=== PATIENT | female | born 1995 | race American Indian/Alaskan Native ===

== ENCOUNTER 2020-09-04 03:01 | Emergency (ER) | payer OTHER ==
[2020-09-04 04:29] VITALS: BP 124/68
[2020-09-04 05:47] LABS: Basophils # (Auto) 0.1 K/mm3 (0.0-0.1); Basophils % (Auto) 0.7 % (0.0-1.8); Eosinophils # (Auto) 0.3 K/mm3 (0.0-0.4); Eosinophils % (Auto) 3.8 % (0.0-4.3); Hematocrit 33.6 % (30.3-42.9); Lymphocytes % (Auto) 36.7 % (13.4-35.0); Mean Corpuscular HGB Conc 36 % (30-34); Mean Corpuscular Volume 86 fl (79-97); Monocytes # (Auto) 0.6 K/mm3 (0.0-0.8); Monocytes % (Auto) 7.4 % (0.0-7.3); Platelet Count 245 K/mm3 (140-440)
[2020-09-04 06:05] LABS: Alanine Aminotransferase 10 units/L (7-56); Albumin 4.2 g/dL (3.9-5); Blood Urea Nitrogen 9 mg/dL (7-17); Calcium 9.2 mg/dL (8.4-10.2); Hemolysis Index 6
[2020-09-04 06:08] LABS: BUN/Creatinine Ratio 18; Bilirubin,Direct < 0.2 mg/dL (0-0.2)
--- NOTE | 2020-09-04 07:28 | Ultrasound Report ---
ULTRASOUND PELVIS, COMPLETE INDICATION: Pelvic pain COMPARISON: No relevant prior imaging study available. TECHNIQUE: Transabdominal imaging was performed. FINDINGS: Uterus: IUD is within the lower uterine segment/cervix. Endometrial echo complex measures 3-4. Right ovary: No significant abnormality. Flow is seen to the right ovary. Left ovary: No significant abnormality. Flow is seen to the left ovary. Additional findings: There is no free fluid in the pelvis. IMPRESSION: IUD is low lying in the lower uterine segment/cervix. Otherwise unremarkable pelvic ultrasound. Signer Name: Maciej Cavazos MD Signed: 09/04/2020 7:24 AM Workstation Name: [id number]
--- NOTE | 2020-09-04 07:38 | Emergency Department Report ---
<YAMILKA CALERO - Last Filed: 09/04/20 09:15> ED Abdominal Pain HPI - General Chief Complaint: Abdominal Pain Stated Complaint: STOMACH AND BUTT CRAMPING BLEEDING Time Seen by Provider: 09/04/20 05:11 - Related Data Previous Rx's Medication Instructions Recorded Last Taken Type Ketorolac [Toradol] 10 mg PO Q6H PRN #10 tablet 09/04/20 Unknown Rx Nitrofurantoin [place]/M-Cryst 100 mg PO BID 5 Days #10 capsule 09/04/20 Unknown Rx [Macrobid CAP] Allergies Allergy/AdvReac Type Severity Reaction Status Date / Time No Known Allergies Allergy Unverified 08/28/20 09:14 ED Past Medical Hx - Medications Home Medications: Home Medications Medication Instructions Recorded Confirmed Last Taken Type Ketorolac [Toradol] 10 mg PO Q6H PRN #10 tablet 09/04/20 Unknown Rx Nitrofurantoin [place]/M-Cryst 100 mg PO BID 5 Days #10 capsule 09/04/20 Unknown Rx [Macrobid CAP] ED Medical Decision Making - Lab Data Result diagrams: 09/04/20 05:23 09/04/20 05:23 ED Disposition Clinical Impression: Pelvic pain UTI (urinary tract infection) Qualifiers: Urinary tract infection type: acute cystitis Hematuria presence: without hematuria Qualified Code(s): N30.00 - Acute cystitis without hematuria Disposition: - TO HOME OR SELFCARE Condition: Stable Instructions: Pelvic Pain, Female, Urinary Tract Infection, Adult, [id number], Abdominal Pain (ED) Prescriptions: Nitrofurantoin [place]/M-Cryst [Macrobid CAP] 100 mg PO BID 5 Days #10 capsule Ketorolac [Toradol] 10 mg PO Q6H PRN #10 tablet PRN Reason: Pain Referrals: [facility] [Provider Group] - 3-5 Days [facility], [Primary Care Provider] - 3-5 Days <DEBORAH ISBELL - Last Filed: 09/06/20 08:02> ED Abdominal Pain HPI - General Source: family Mode of arrival: Ambulatory Limitations: No Limitations - History of Present Illness Initial Comments: 25-year-old with an IUD Somali female presents emerge department complaining abdominal pain to the lower region that started last night radiates to the right flank associated with no nausea vomiting or diarrhea. She reports no hematuria no hematemesis no hematochezia no vaginal bleeding. States his BMs are crampy leg pain that starts in her lower abdomen and kind of shoots back towards her buttocks for reasons unknown she reports no palliative or provocative factors with exception of some movements and positions exploring the pain. MD Complaint: abdominal pain Quality: cramping, aching Consistency: intermittent (Becoming more consistent) Associated Symptoms: denies: nausea, vomiting, diarrhea, fever, constipation, dysuria, hematemesis, melena, hematuria, anorexia ED Review of Systems ROS: Stated complaint: STOMACH AND BUTT CRAMPING BLEEDING Other details as noted in HPI Comment: All other systems reviewed and negative ED Past Medical Hx - Past Medical History Previous Medical History?: Yes Additional medical history: ovarian cyst - Surgical History Additional Surgical History: - Social History Smoking Status: Never Smoker Substance Use Type: None ED Physical Exam - General Limitations: No Limitations General appearance: alert, in no apparent distress - Head Head exam: Present: atraumatic, normocephalic - Eye Eye exam: Present: normal appearance, PERRL Pupils: Present: normal accommodation - ENT ENT exam: Present: mucous membranes moist - Neck Neck exam: Present: normal inspection - Respiratory Respiratory exam: Present: normal lung sounds bilaterally. Absent: respiratory distress - Cardiovascular Cardiovascular Exam: Present: regular rate, normal rhythm. Absent: systolic murmur, diastolic murmur, rubs, gallop - GI/Abdominal GI/Abdominal exam: Present: soft, tenderness, normal bowel sounds - Extremities Exam Extremities exam: Present: normal inspection - Back Exam Back exam: Present: normal inspection - Neurological Exam Neurological exam: Present: alert, oriented X3 - Psychiatric Psychiatric exam: Present: normal affect, normal mood - Skin Skin exam: Present: warm, dry, intact, normal color. Absent: rash ED Course Vital Signs 09/04/20 03:40 Temperature 98.3 F Pulse Rate 69 Respiratory 17 Rate Blood Pressure 124/68 O2 Sat by Pulse 98 Oximetry ED Medical Decision Making - Lab Data Result diagrams: 09/04/20 05:23 09/04/20 05:23 - Radiology Data Radiology results: report reviewed [facility] [address] [place] [address] Ultrasound Report Signed Patient: SALLY GENTILE MR#: [id number] : 1995 Acct:[id number] Age/Sex: 25 / F ADM Date: 09/04/20 Loc: ED Attending Dr: Ordering Physician: ROD RIOJAS Date of Service: 09/04/20 Procedure(s): US pelvic complete Accession Number(s): [id number] cc: ROD RIOJAS ULTRASOUND PELVIS, COMPLETE INDICATION: Pelvic pain COMPARISON: No relevant prior imaging study available. TECHNIQUE: Transabdominal imaging was performed. FINDINGS: Uterus: IUD is within the lower uterine segment/cervix. Endometrial echo complex measures 3-4. Right ovary: No significant abnormality. Flow is seen to the right ovary. Left ovary: No significant abnormality. Flow is seen to the left ovary. Additional findings: There is no free fluid in the pelvis. IMPRESSION: IUD is low lying in the lower uterine segment/cervix. Otherwise unremarkable pelvic ultrasound. Signer Name: Maciej Cavazos MD Signed: 09/04/2020 7:24 AM Workstation Name: [id number] Transcribed By: LUIZ Dictated By: Maciej Cavazos MD Electronically Authenticated By: Maciej Cavazos MD Signed Date/Time: 09/04/20723 DD/ 1 TD/TT: - Medical Decision Making 25-year-old Somali male presents emergency department with abdominal pelvic pain of unclear etiology has an IUD placed and was thinking that there was an issue in the category. An ultrasound will scan to perform evaluate the potential causes of her pain however neither the clinical examination of the ultrasound has identified an emergent cyst etiology for the abdominal pain. Specifically given the findings on physical semination, the laboratory studies and unremarkable ultrasound have a very low suspicion for pelvic inflammatory disease, ovarian torsion, appendicitis, ischemic bowel or any perforation or any other life threatening causes. She did have findings suggestive of UTI which may account for some of the discomfort and it was treated accordingly. I have discussed with the patient the level of uncertainty and undifferentiated abdominal pain and clearly explained the need to follow-up as noted in the dis charge instructions or change or emergency department immediately if the pain worsens, fever develops, persistent ankle uncontrollable vomiting, or any new symptoms or concerns to suggest that your symptoms are worsening Critical care attestation.: If time is entered above; I have spent that time in minutes in the direct care of this critically ill patient, excluding procedure time. ED Disposition Is pt being admited?: No Does the pt Need Aspirin: No
[2020-09-04 09:07] LABS: Bilirubin,Urine NEG (Negative); Blood,Urine NEG (Negative); Color,Urine Yellow (Yellow); Mucus,Urine FEW /HPF; Protein,Urine <15 mg/dL mg/dL (Negative); Urobilinogen,Urine < 2.0 mg/dL (<2.0)
== END 2020-09-04 09:44 | disposition home or self-care (01) ==
LOC: ED 03:01
DX: N39.0 Urinary tract infection, site not specified (principal)
CPT/HCPCS: 36415; 76856; 80048; 80076; 81001; 83690; 84703; 85025; 87086

== ENCOUNTER 2020-09-24 10:27 | Day surgery (SDC) | payer BC, OTHER ==
--- NOTE | 2020-09-24 08:54 | History and Physical Report ---
History of Present Illness Date of examination: 09/24/20 Chief complaint: Retained IUD History of present illness: Pt is a 25 year old -[place] female who presents for surgical removal of IUD after failed in-office attempt Past History Past Medical History: no pertinent history Past Surgical History: no surgical history [employer] History: chlamydia (remote history ), gonorrhea (remote history ), herpes, trichomonas (remote history ) Family/Genetic History: none Social history: no significant social history - Obstetrical History : 2 Para: 1 Hx # Term Pregnancies: 1 Number of Pregnancies: 0 Spontaneous Abortions: 0 Induced : 1 Number of Living Children: 1 Medications and Allergies Allergies Allergy/AdvReac Type Severity Reaction Status Date / Time No Known Allergies Allergy Unverified 08/28/20 09:14 Home Medications Medication Instructions Recorded Confirmed Last Taken Type Ketorolac [Toradol] 10 mg PO Q6H PRN #10 tablet 09/04/20 Unknown Rx Nitrofurantoin [place]/M-Cryst 100 mg PO BID 5 Days #10 capsule 09/04/20 Unknown Rx [Macrobid CAP] Review of Systems All systems: negative - Physical Exam Breasts: Positive: deferred Cardiovascular: Regular rate Lungs: Positive: Clear to auscultation Abdomen: Positive: soft Extremities: Positive: normal Results All other labs normal. Assessment and Plan A: Retained IUD P: Proceed with hysteroscopic IUD removal and other indicated procedures
[~2020-09-24 10:27] MED LIST: LACTATED RINGERS 1,000 ML IV SCH; ceFAZolin/Water 2 GM/20 ML 2 GM/20 ML SYRINGE IV NR
[2020-09-24] MEDS ORDERED: ONDANSETRON 4 MG/2 ML INJ IV PRN (11:20)
[2020-09-24] MEDS ORDERED: HYDROmorphone 1 MG/1 ML INJ IV PRN ×2 (11:20)
--- NOTE | 2020-09-24 11:21 | Anesthesia Day of Surgery ---
Anesthesia Day of Surgery - Day of Surgery Patient Examined: Yes Patient H&P Reviewed: Yes Patient is NPO: Yes
--- NOTE | 2020-09-24 11:22 | Anesthesia Consultation ---
Anesthesia Consult and Med Hx Date of service: 09/24/20 - Airway Anesthetic Teeth Evaluation: Good ROM Head & Neck: Adequate Mental/Hyoid Distance: Adequate Mallampati Class: Class II Intubation Access Assessment: Good - Pre-Operative Health Status ASA Pre-Surgery Classification: ASA1 Proposed Anesthetic Plan: General - Pulmonary Hx Smoking: No Hx Respiratory Symptoms: No - Cardiovascular System Hx Hypertension: No - Central Nervous System Hx Psychiatric Problems: Yes - Hematic Hx Sickle Cell Disease: No - Other Systems Hx Cancer: No Hx Obesity: No
[2020-09-24 11:43] LABS: Hematocrit 39.4 % (30.3-42.9); Hemoglobin 13.5 gm/dl (10.1-14.3); Mean Corpuscular HGB Conc 34 % (30-34); Mean Corpuscular Volume 87 fl (79-97); Platelet Count 291 K/mm3 (140-440); Red Blood Count 4.54 M/mm3 (3.65-5.03); Red Cell Distribution Width 13.2 % (13.2-15.2)
[2020-09-24] MEDS ORDERED: MIDAZOLAM 2 MG/2 ML INJ IV NR (12:00)
[2020-09-24] MEDS ORDERED: SILVER NITRATE APPLICATOR 1 EA TP ONE ×2 (12:52→13:30)
[2020-09-24] MEDS ORDERED: MIDAZOLAM 2 MG/2 ML INJ ONE (13:04)
[2020-09-24] MEDS ORDERED: propofoL 200 MG/20 ML VIAL IV ONE (13:04)
[2020-09-24] MEDS ORDERED: fentaNYL 100 MCG/2 ML INJ ONE (13:13)
[2020-09-24] MEDS ORDERED: ONDANSETRON 4 MG/2 ML INJ ONE (13:21)
--- NOTE | 2020-09-24 13:41 | Operative Report ---
Operative Report Operative Report: Date of procedure: September 24, 2020 Preoperative diagnosis: Retained IUD Postoperative diagnosis: Same Procedure: Hysteroscopic IUD removal Surgeon: Sushma Alonso M.D. Anesthesia: General Findings: 1) Small anteverted uterus with IUD strings visible Estimated blood loss: 10 mL Specimens: IUD to pathology Drains: None Complications: None. Counts correct 2 Disposition: Stable to PACU Indication for procedure: The patient is a 25 year old -[place] female who presents for surgical removal of IUD after failed in-office attempt. Operation in detail: After the risks, benefits, alternatives, and complications of the procedure were explained to the patient, she gave informed consent for the procedure. She was subsequently taken to the operating room with her IV noted to be running well and placed in the dorsal supine position. SCDs were noted to be in place and functioning. Anesthesia was then induced without difficulty. The patient was then placed in the dorsal lithotomy position and prepped and draped in a normal sterile fashion. A timeout was performed. A red rubber catheter was used to catheterize the bladder yielding clear urine. An open sided bivalve speculum was then placed into the vagina for adequate visualization of the cervix. The cervix was then grasped with a single-tooth tenaculum for traction. The cervix was then sequentially dilated with Robles dilators to a #18. A 5 mm hysteroscope was then placed into the uterine cavity. The IUD with its strings were visualized. The hysteroscopic grasper was then used to grasp the IUD string. The hysteroscope and graspers were then pulled out of the uterine cavity, thereby removing the IUD. The IUD was noted to be intact and was sent to pathology. The single-tooth tenaculum was then removed from the cervix. Silver nitrate was placed on the tenaculum puncture sites. Hemostasis was noted. The bivalve speculum was then removed from the vagina. At this time the procedure was ended. The patient was replaced into the dorsal lithotomy position and extubated without difficulty. She was subsequently taken to the PACU in stable condition. The patient tolerated the procedure well. All instrument and lap counts were correct 2.
--- NOTE | 2020-09-24 13:44 | Short Stay Summary ---
Short Stay Documentation Date of service: 09/24/20 - History H&P: dictated Social history: no significant social history - Allergies and Medications Current Medications: Allergies No Known Allergies Allergy (Unverified 08/28/20 09:14) Home Medications Medication Instructions Recorded Confirmed Last Taken Type Ketorolac [Toradol] 10 mg PO Q6H PRN #10 tablet 09/04/20 Unknown Rx Nitrofurantoin [place]/M-Cryst 100 mg PO BID 5 Days #10 capsule 09/04/20 Unknown Rx [Macrobid CAP] Active Medications Hydromorphone HCl (Hydromorphone 1 Mg/1 Ml Inj) 0.25 mg IV Q10MIN PRN PRN Reason: Pain, Moderate (4-6) Stop: 09/24/20 23:59 Hydromorphone HCl (Hydromorphone 1 Mg/1 Ml Inj) 0.5 mg IV Q10MIN PRN PRN Reason: Pain , Severe (7-10) Stop: 09/24/20 23:59 Lactated Ringer's (Lactated Ringers) 1,000 mls @ 75 mls/hr IV DIRECT SARANYA Cefazolin Sodium (Ancef/Sterile Water 2 Gm/20 Ml) 2 gm in 20 mls @ 80 mls/hr IV PREOP NR; Protocol Stop: 09/24/20 20:00 Midazolam HCl (Midazolam 2 Mg/2 Ml Inj) 2 mg IV PREOP NR Stop: 09/24/20 23:59 Ondansetron HCl (Ondansetron 4 Mg/2 Ml Inj) 4 mg IV ONCE PRN PRN Reason: Nausea And Vomiting - Physical exam Breasts: deferred - Brief post op/procedure progress note Date of procedure: 09/24/20 Pre-op diagnosis: Retained IUD Post-op diagnosis: same Procedure: Hysteroscopic IUD Removal Anesthesia: GETA Findings: IUD visualized inside endometrial cavity Surgeon: JOAQUIN CACERES Estimated blood loss: minimal (10 mL) Pathology: list (IUD) Specimen disposition: to lab Condition: stable - Hospital course Hospital course: Pt underwent hysteroscopic IUD removal which she tolerated well. She was observed in the PACU until she met discharge criteria. She will follow up in the office in 3-4 wks for postop exam. - Disposition Condition at discharge: Stable Disposition: TO HOME OR SELFCARE - Discharge Diagnoses (1) IUD complication Status: Acute Qualifiers: Device complication type: unspecified Encounter type: initial encounter Qualified Code(s): T83.9XXA - Unspecified complication of genitourinary prosthetic device, implant and graft, initial encounter Short Stay Discharge Plan Activity: other (Nothing in vagina, no tub baths for 4 wks ) Weight Bearing Status: Full Weight Bearing Diet: regular Follow up with: RAMIREZ BENÍTEZ MD [Primary Care Provider] - 7 Days JOAQUIN CACERES MD [Staff Physician] - 10/15/20 (Please schedule your appt the week of October 13, 2020 ) Prescriptions: Ibuprofen [Motrin] 800 mg PO Q8HR PRN #30 tablet PRN Reason: Pain, Moderate (4-6) oxyCODONE /ACETAMINOPHEN [Percocet 5/325] 1 tab PO Q6HR PRN #20 tablet PRN Reason: Pain
[2020-09-24 14:24] VITALS: BP 107/76
[2020-09-24] MEDS ORDERED: oxyCODONE /ACETAMINOPHEN 5-325MG TAB PO PRN (15:03)
[2020-09-24] MEDS ORDERED: oxyCODONE /ACETAMINOPHEN 5-325MG TAB ONE (15:04)
--- NOTE | 2020-09-24 17:41 | Post Anesthesia Evaluation ---
- Post Anesthesia Evaluation Patient Participated: Yes Airway Patent: Yes Stable Respiratory Function: Yes Nausea/Vomiting: No Temp > 96.8F: Yes Pain Manageable: Yes Adequeate Hydration: Yes Anesthesia Complications: No Block Receding Appropriately: Not Applicable Patient on Ventilator: No
== END 2020-09-24 10:28 | disposition home or self-care (01) ==
LOC: OR 10:27
PROVIDERS: ATTEND Obstetrics & Gynecology
DX: T83.89XA Other specified complication of genitourinary prosthetic devices, implants and grafts, initial encounter (principal); Z30.432 Encounter for removal of intrauterine contraceptive device; F31.9 Bipolar disorder, unspecified; Z98.890 Other specified postprocedural states; Z79.899 Other long term (current) drug therapy; Y82.8 Other medical devices associated with adverse incidents; Y92.89 Other specified places as the place of occurrence of the external cause
CPT/HCPCS: 36415; 58562; 81025; 85027; 88302; J0690; J2250; J2405; J2704; J3010; J7120